=== PATIENT | female | born 1960 | race Caucasian/White ===

== ENCOUNTER 2017-01-13 05:37 | Outpatient (CLI) | payer BC ==
[~2017-01-13] VITALS: Ht 165.1 cm; Wt 63.5 kg
[~2017-01-13 05:37] MED LIST: ATOR20TA66 PO; ESTR1TAB24 PO; MEDR2.5T PO; OXYC-272 PO
--- OUTSIDE RECORDS SUMMARY | 2017-01-13 05:42 | XMS REPORT | Continuity of Care Document ---
Author Author [facility] Organization [facility] Address Unknown Phone Unavailable Care Team Providers Care Industrial Sweeper Cleaner Name Role Phone ARINA VIZCAINO MD PCP Insurance Providers Payer Name Policy Number Subscriber Name Relationship [facility] [id number] Tano Barker Self / Same As Patient Advance Directives Directive Response Recorded Date/Time Advance Directives No 08/22/16 5:08pm Organ Donor Yes 08/22/16 5:08pm Resuscitation Status Full Code 08/22/16 5:08pm Chief Complaint and Reason for Visit Chief Complaint Upper Extremity Reason for Visit [id number] Problems Active Problems Medical Problem Onset Date Status Contusion of hand, left Unknown Acute Medications Current Home Medications Medication Dose Units Route Directions Days/Qty Instructions Start Date Atorvastatin Calcium 20 Mg 30 Mg Oral Daily @1200 TAKE 1 1/2 OF (20MG) TAB 04/18/15 Medroxyprogesterone Acetate 2.5 Mg 2.5 Mg Oral Daily @ 1200 04/18/15 Estradiol 1 Mg 1 Mg Oral Daily @ 1200 04/18/15 Oxycodone Hcl/Acetaminophen 1 Tab 1-2 Tab Oral Every 4HRS 30 04/24/15 Social History Social History Problem Response Recorded Date/Time Alcohol Use Rarely Uses 04/24/2015 11:31am Recreational Drug Use No 04/24/2015 11:31am Recent Foreign Travel No 08/22/2016 5:08pm Recent Infectious Disease Exposure No 08/22/2016 5:08pm Hospitalization with Isolation Denies 08/22/2016 5:08pm Smoking Status Never a Smoker 08/22/2016 5:08pm Recent Hopitalizations No 08/22/2016 5:08pm Hospitalization with Isolation Denies 08/22/2016 5:08pm Query Response Start Date Stop Date Smoking Status Never a Smoker Hospital Discharge Instructions No hospital discharge instructions. Plan of Care Discharge Date 08/22/16 5:55pm Disposition 01 HOME, SELF-CARE Condition at Discharge Stable Instructions/Education Provided Contusion (ED) Prescriptions See Medication Section Referrals ARINA VIZCAINO MD - Primary Care Physician Additional Instructions/Education All discharge instructions reviewed with patient and/or family. Voiced understanding. Per wrap, except when bathing. Ice to left hand 20 min every 2 hours Tylenol 650 mg every 6-8 hours as needed. return to emergency department for symptoms that worsen or change. Functional Status No functional status results. Allergies, Adverse Reactions, Alerts No known allergies. Immunizations Name Given Type DTaP-Tetanus, Dipth, Pertuss P/F (Boostrix) 08/22/16 Administered Vital Signs Acute Vital Signs Vital Response Date/Time Temperature (Fahrenheit) 97.8 degrees F (97.6 - 99.5) 08/22/2016 5:08pm Temperature (Calculated Celsius) 36.37100 degrees C (36.4 - 37.5) 08/22/2016 5:08pm Temperature Source Temporal 08/22/2016 5:08pm Pulse Rate (adult) 0 bpm (60 - 90) 08/22/2016 5:55pm Respiratory Rate 0 bpm (12 - 24) 08/22/2016 5:55pm O2 Sat by Pulse Oximetry 0 % (88 - 100) 08/22/2016 5:55pm Blood Pressure 0/0 mm Hg 08/22/2016 5:55pm Blood Pressure Mean 89 mm Hg 08/22/2016 5:08pm Pain Numeric Pain Scale 6 08/22/2016 5:08pm Height (Feet) 5 feet 08/22/2016 5:08pm Height (Inches) 5 inches 08/22/2016 5:08pm Height (Calculated Centimeters) 165.578366 cm 08/22/2016 5:08pm Weight (Pounds) 140 pounds 08/22/2016 5:08pm Weight (Calculated Kilograms) 63.661947 kilograms 08/22/2016 5:08pm Capillary Refill Capillary Refill Less Than 3 Seconds 08/22/2016 5:08pm Height 5 ft 5 in Weight 140 lb Body Mass Index 23.3 kg/m^2 Results No known relevant diagnostic tests, laboratory data and/or discharge summary. Procedures No known history of procedures. Encounters Encounter Location Arrival/Admit Date Discharge/Depart Date Attending Provider Departed Emergency Room [facility] 08/22/16 5:06pm 08/22 5:55pm ALMAZ JO Recent Diagnosis
== END 2017-01-13 12:23 ==
LOC: PREOP 05:37
PROVIDERS: ATTEND Internal Medicine
DX: Z01.818 Encounter for other preprocedural examination (principal); Z12.11 Encounter for screening for malignant neoplasm of colon

== ENCOUNTER 2017-01-15 07:31 | Day surgery (SDC) | payer BC ==
[~2017-01-15] VITALS: Ht 165.1 cm; Wt 63.5 kg
--- OUTSIDE RECORDS SUMMARY | 2017-01-15 07:33 | XMS REPORT | Continuity of Care Document ---
Author Author [facility] Organization [facility] Address Unknown Phone Unavailable Care Team Providers Care Can Filler Name Role Phone ARINA VIZCAINO MD PCP Insurance Providers Payer Name Policy Number Subscriber Name Relationship [facility] [id number] Tano Barker Self / Same As Patient Advance Directives Directive Response Recorded Date/Time Advance Directives No 01/13/17 12:19pm Organ Donor Yes 01/13/17 12:19pm Resuscitation Status Full Code 01/13/17 12:19pm Problems Active Problems Medical Problem Onset Date [...] 1 Mg Oral Daily @ 1200 04/18/15 Past Home Medications Medication Directions Ordered Status Oxycodone Hcl/Acetaminophen 1 Tab Tablet, 1-2 Tab Oral Every 4HRS 04/24/15 Discontinued Social History Social History Problem Response Recorded Date/Time Alcohol Use Rarely Uses 04/24/2015 11:31am Recreational Drug Use No 04/24/2015 11:31am Recent Foreign Travel No 01/13/2017 12:19pm Recent Infectious Disease Exposure No 01/13/2017 12:19pm Smoking Status Never a Smoker 01/13/2017 12:19pm Recent Hopitalizations No 01/13/2017 12:19pm Query Response Start Date Stop Date Smoking Status Never a Smoker Hospital Discharge Instructions No hospital discharge instructions. Plan of Care Discharge Date 01/13/17 12:23pm Prescriptions See Medication Section Functional Status No functional status results. Allergies, Adverse Reactions, Alerts No known allergies. Immunizations No immunization records. Vital Signs Acute Vital Signs Vital Response Date/Time Height (Feet) 5 feet 01/13/2017 12:17pm Height (Inches) 5.00 inches 01/13/2017 12:17pm Height (Calculated Centimeters) 165.923361 cm 01/13/2017 12:17pm Weight (Pounds) 140 pounds 01/13/2017 12:17pm Weight (Ounces) 0.0 oz 01/13/2017 12:17pm Weight (Calculated Grams) 55710.93 gm 01/13/2017 12:17pm Weight (Calculated Kilograms) 63.520607 kilograms 01/13/2017 12:17pm Calculated BMI 23.3 01/13/2017 12:17pm Results No known relevant diagnostic tests, laboratory data and/or discharge summary. Procedures No known history of procedures. Encounters Encounter Location Arrival/Admit Date Discharge/Depart Date Attending Provider Departed Clinic [facility] 01/13/17 5:37am 01/13/17 12: 23pm DEBBIE BROOKS MD
--- OUTSIDE RECORDS SUMMARY | 2017-01-15 07:34 | XMS REPORT | Continuity of Care Document ---
Author Author [facility] Organization [facility] Address Unknown Phone Unavailable Care Team Providers Care Airport Maintenance Laborer Name Role Phone ARINA VIZCAINO MD PCP Insurance Providers Payer Name Policy Number Subscriber Name Relationship [facility] [id number] Tano Barker Self / Same As Patient [...] 5.00 inches 01/13/2017 12:17pm Height (Calculated Centimeters) 165.902436 cm 01/13/2017 12:17pm Weight (Pounds) 140 pounds 01/13/2017 12:17pm Weight (Ounces) 0.0 oz 01/13/2017 12:17pm Weight (Calculated Grams) 40428.93 gm 01/13/2017 12:17pm Weight (Calculated Kilograms) 63.213889 kilograms 01/13/2017 12:17pm Calculated BMI 23.3 01/13/2017 12:17pm Results No known relevant diagnostic tests, laboratory data and/or discharge summary. Procedures No known history of procedures. Encounters Encounter Location Arrival/Admit Date Discharge/Depart Date Attending Provider Departed Clinic [facility] 01/13/17 5:37am 01/13/17 12: 23pm DEBBIE BROOKS MD
--- NOTE | 2017-01-15 07:42 | Pre-Op Note & Conscious Sedat ---
Pre-Operative Progress Note H&P Reviewed The H&P was reviewed, patient examined and no changes noted. Date H&P Reviewed: Jan 15, 2017 Time H&P Reviewed: 07:42 Conscious Sedation Pre-Proced ASA Class: 2 Airway Mallampati Classification: ([place] appropriate class) I. II. III, IV Lungs Heart ASA score ASA 1: a normal healthy patient ASA 2: a patient with a mild systemic disease (mid diabetes, controlled hypertension, obesity ASA 3: a patient with a severe systemic disease that limits activity (angina , COPD, prior Myocardial infarction) ASA 4: a patient with an incapacitating disease that is a constant threat to life (CHF, renal failure) ASA 5: a moribund patient not expected to survive 24 hrs. (ruptured aneurysm) ASA 6: a declared brain patient whose organs are being harvested. For emergent operations, add the letter E after the classification Grade 3 Sedation Plan: Analgesia, Amnesia, Plan communicated to team members, Discussed options with patient/fam, Discussed risks with patient/fam Note The patient is an appropriate candidate to undergo the planned procedure, sedation, and anesthesia. The patient immediately re-assessed prior to indication. DEBBIE BROOKS MD Jan 15, 2017 07:42
--- NOTE | 2017-01-15 07:44 | HISTORY AND PHYSICAL ---
DICTATING PHYSICIAN: Dr. Cardenas DATE OF ADMISSION: 01/15/2017 REFERRING PHYSICIAN: Dr. Salter. INDICATION FOR THE PROCEDURE: Screening colonoscopy Mrs. Barker is a 56-year-old white female referred for her first screening colonoscopy. She is not aware of any family history for colon cancer. She denies any recent bowel habit changes and was not aware of any bright red blood per rectum or melena. She reports that her weight has been stable. PAST SURGICAL HISTORY: 1. Significant for hysteroscopy with uterine ablation for dysfunctional uterine bleeding; this was done per Dr. Salter in 2014. 2. She has had no subsequent problems. 3. She has had nephrolithiasis requiring stone basketing x2 thirty years ago with no subsequent problems. 4. She reports no abdominal surgery. PAST MEDICAL HISTORY: 1. Significant for hyperlipidemia. 2. No known history of coronary artery disease. MEDICATIONS ON ADMISSION: 1. Medroxyprogesterone 2.5 mg daily. 2. Estradiol 1 mg daily. 3. Atorvastatin 30 mg daily. SOCIAL HISTORY: She reports no smoking history with rare alcohol intake. She works for the [employer]. FAMILY HISTORY: Mother and father are both living at 76 and 75 years of age respectively with no reported health problems. PHYSICAL EXAMINATION: Reveals a white female, appears to be in no acute distress. Blood pressure of 128/82. HEENT: She is a Mallampati class II oropharyngeal configuration. Pharynx reveals no evidence for erythema or exudates. NECK: Reveals no JVD, adenopathy or bruits. CHEST: Clear. CV: Reveals regular rate and rhythm without murmur, S3 or S4. ABDOMEN: Soft, supple without mass, organomegaly or tenderness. Bowel sounds are positive in all 4 quadrants. EXTREMITIES: Reveal no cyanosis, clubbing, or edema. ASSESSMENT: The patient was set-up for screening colonoscopy on the . Prep instructions were given and questions were answered. Her electronic medical record was reviewed as well. I thank you for the referral of this pleasant lady. Sincerely, Meng Cardenas Job ID: [id number] Dictated Date: 01/05/2017 20:32:00 Dental Therapist Date: 01/06/2017 10:12:11/more
[2017-01-15 07:45] VITALS: BP 122/84
[2017-01-15] MEDS ORDERED: NALOXONE 0.4 MG/ML 1 ML (NARCAN) VIAL IVP PRN (08:15)
[2017-01-15] MEDS ORDERED: FLUMAZENIL (ROMAZICON) 0.1 MG/ML 5 ML VIAL INJ PRN (08:15)
[2017-01-15] MEDS ORDERED: 1/2 NS IV SOLUTION 1,000 ML IV PRN (08:15)
[2017-01-15] MEDS ORDERED: 1/2 NS IV SOLUTION 1,000 ML IV ONE (08:33)
[2017-01-15] MEDS ORDERED: MIDAZOLAM 2 MG/2 ML (VERSED) VIAL ONE ×3 (08:37→09:07)
[2017-01-15] MEDS ORDERED: fentaNYL INJECTION 100 MCG/2 ML AMP ONE ×2 (08:37→08:48)
[2017-01-15] MEDS ORDERED: LIDOCAINE JELLY 2% (XYLOCAINE) 5 ML TUBE ONE (08:38)
[2017-01-15] MEDS: fentaNYL INJECTION 100 MCG/2 ML AMP IVP PRN ×3 (08:46→08:58)
[2017-01-15] MEDS: MIDAZOLAM 2 MG/2 ML (VERSED) VIAL IVP PRN ×3 (08:48→09:10)
[2017-01-15 10:00] VITALS: BP 109/72
[2017-01-15 10:25] VITALS: BP 116/73
--- NOTE | 2017-01-15 16:29 | PROCEDURE REPORT ---
PROCEDURE PHYSICIAN: DEBBIE BROOKS DATE OF PROCEDURE: 01/15/2017 COLONOSCOPY SUMMARY: INDICATION FOR THE PROCEDURE: Screening colonoscopy. REFERRING PHYSICIAN: Dr. Salter. PROCEDURE: The patient was placed in the left lateral decubitus position. Prior to going colonoscopy, digital rectal evaluation was performed. The patient did have some redundant perianal skin folds, but no evidence for internal or external hemorrhoids was noted. Digital rectal evaluation revealed no abnormalities to digital inspection. Anal sphincter tone was normal and the perianal reflex was intact. The colonoscope was then inserted into the rectum and under visualization, advanced to the cecum. The cecum was identified by identification of the ileocecal valve and cecal strap. Photographic documentation was obtained. Careful inspection was made as the colonoscope was withdrawn. FINDINGS: There were no evidence for internal or external hemorrhoids and the rectum was unremarkable. A moderate number of small to medium size sigmoid diverticulum were present with haustral hypertrophy. No evidence for diverticulitis was present. No evidence for neoplasia was noted in the sigmoid colon. The descending colon was unremarkable. Present in the proximal transverse colon was a slightly inflamed 5 mm sessile adenomatous appearing polyp. It was photographed, biopsied and ablated. No subsequent blood loss was noted. The remainder of the transverse colon, hepatic flexure, ascending colon and cecum were unremarkable. ASSESSMENT: 1. Moderate diverticular disease confined to the sigmoid colon was present, without evidence for diverticulitis. 2. 5 mm sessile inflamed adenomatous appearing polyp was removed from the proximal transverse colon without subsequent blood loss via hot forceps. We will await histopathology report before making recommendations for future surveillance colonoscopy. Job ID: [id number] Dictated Date: 01/15/2017 10:31:10 Steel Fabricating Supervisor Date: 01/15/2017 16:21:32 / carolina VEGA
== END 2017-01-15 10:28 | disposition home or self-care (01) ==
LOC: ENDO 07:31
PROVIDERS: ATTEND Internal Medicine
DX: Z12.11 Encounter for screening for malignant neoplasm of colon (principal); K63.5 Polyp of colon; K57.30 Diverticulosis of large intestine without perforation or abscess without bleeding
CPT/HCPCS: 88305

== ENCOUNTER → 2017-01-21 | Outpatient (CLI) | payer BC ==
--- NOTE | 2017-01-21 17:42 | Diagnostic Imaging Report ---
Bilateral screening mammogram. The current study was also evaluated with a Computer Aided Detection (CAD) system. INDICATION: Screening. No current complaints stated on the questionnaire. COMPARISON: 01/15/16. FINDINGS: The breasts are composed of scattered fibroglandular densities which may decrease mammographic sensitivity. There is no mass, architectural distortion or suspicious cluster of calcification. Allowing for technique and positional differences, no suspicious change is seen. IMPRESSION: No significant change. ACR BI-RADS Category 2: Benign findings. Result letter will be mailed to the patient. Note: At least 10% of breast cancer is not imaged by mammography. Dictated by: Dictated on workstation # [id number]
== END ==
LOC: RAD 12:44
PROVIDERS: ATTEND Obstetrics & Gynecology
DX: Z12.31 Encounter for screening mammogram for malignant neoplasm of breast (principal)
CPT/HCPCS: 77067

== ENCOUNTER → 2018-01-24 | Outpatient (CLI) | payer BC ==
--- NOTE | 2018-01-24 12:38 | Diagnostic Imaging Report ---
INDICATION: Routine screening. Comparison is made with prior study from 01/21/2017 and 01/15/2016. The current study was also evaluated with a Computer Aided Detection (CAD) system. Scattered fibronodular densities are identified bilaterally. No mass or malignant appearing microcalcifications are seen. The axillae are unremarkable. IMPRESSION: BI-RADS category one No mammographic features suspicious for malignancy are identified. ACR BI-RADS Category 1: Negative. Result letter will be mailed to the patient. Note: At least 10% of breast cancer is not imaged by mammography. Dictated by: Dictated on workstation # [id number]
== END ==
LOC: RAD 10:10
PROVIDERS: ATTEND Obstetrics & Gynecology
DX: Z12.31 Encounter for screening mammogram for malignant neoplasm of breast (principal)
CPT/HCPCS: 77067

== ENCOUNTER → 2019-01-26 | Outpatient (CLI) | payer BC ==
--- NOTE | 2019-01-26 18:55 | Diagnostic Imaging Report ---
INDICATION: Routine screening. COMPARISON: Comparison is made with prior mammograms from 01/24/2018 and 01/21/2017. TECHNIQUE: 2D and 3D bilateral screening mammography was performed with computer-aided detection (CAD) system. FINDINGS: Both breasts are heterogeneously dense, limiting the sensitivity of mammography. The parenchymal pattern is stable. No mass or malignant-appearing microcalcifications are seen. The axillae are unremarkable. IMPRESSION: No mammographic features suspicious for malignancy are identified. ACR BI-RADS Category 1: Negative. Result letter will be mailed to the patient. Note: At least 10% of breast cancer is not imaged by mammography. Dictated by: Dictated on workstation # [id number]
== END ==
LOC: RAD 11:23
PROVIDERS: ATTEND Obstetrics & Gynecology
DX: Z12.31 Encounter for screening mammogram for malignant neoplasm of breast (principal)
CPT/HCPCS: 77067

== ENCOUNTER → 2020-03-22 | Outpatient (CLI) | payer BC ==
--- NOTE | 2020-03-22 18:46 | Diagnostic Imaging Report ---
INDICATION: Routine screening. Comparison is made with prior mammograms from 01/26/2019 and 01/24/2018. 2-D and 3-D bilateral screening mammography was performed. Current study was also evaluated with a Computer Aided Detection (CAD) system. FINDINGS: Both breasts are heterogeneously dense, limiting the sensitivity of mammography. The parenchymal pattern is stable. No mass or malignant-appearing microcalcifications are seen. Axillae are unremarkable. IMPRESSION: No mammographic features suspicious for malignancy are identified. ACR BI-RADS Category 1: Negative. Result letter will be mailed to the patient. Note: At least 10% of breast cancer is not imaged by mammography. Dictated by: Dictated on workstation # [id number]
== END ==
LOC: RAD 10:19
PROVIDERS: ATTEND Obstetrics & Gynecology
DX: Z12.31 Encounter for screening mammogram for malignant neoplasm of breast (principal)
CPT/HCPCS: 77063; 77067

== ENCOUNTER → 2021-03-24 | Outpatient (CLI) | payer BC ==
--- NOTE | 2021-03-24 15:33 | Diagnostic Imaging Report ---
INDICATION: Routine screening. COMPARISON: 03/22/2020 and 01/26/2019. TECHNIQUE: 2D and 3D bilateral screening mammography was performed with CAD. FINDINGS: Both breasts are heterogeneously dense, limiting the sensitivity of mammography. The parenchymal pattern is stable. No mass or malignant appearing microcalcifications are seen. The axillae are unremarkable. IMPRESSION: No mammographic features suspicious for malignancy are identified. ACR BI-RADS Category 1: Negative. Result letter will be mailed to the patient. Note: At least 10% of breast cancer is not imaged by mammography. Dictated by: Dictated on workstation # [id number]
== END ==
LOC: RAD 10:57
PROVIDERS: ATTEND Obstetrics & Gynecology
DX: Z12.31 Encounter for screening mammogram for malignant neoplasm of breast (principal)
CPT/HCPCS: 77063; 77067

== ENCOUNTER → 2022-03-05 | Outpatient (CLI) | payer BC | LOC: LABNPT 11:57 | PROVIDERS: ATTEND Obstetrics & Gynecology | DX: Z00.00 Encounter for general adult medical examination without abnormal findings (principal); Z12.31 Encounter for screening mammogram for malignant neoplasm of breast | CPT/HCPCS: 80061; 84443 ==

== ENCOUNTER → 2022-03-25 | Outpatient (CLI) | payer BC ==
--- NOTE | 2022-03-25 14:07 | Diagnostic Imaging Report ---
Indication: Routine screening. Comparison is made with prior mammogram 03/24/2021 and 03/22/2020. 2-D and 3-D bilateral screening mammography was performed with CAD. CAD is utilized. The current study was also evaluated with a Computer Aided Detection (CAD) system. Both breasts are heterogeneously dense, limiting the sensitivity of mammography. The parenchymal pattern is stable. No mass or malignant-appearing microcalcifications are seen. Axillae are unremarkable. IMPRESSION: BI-RADS Category 1 No mammographic features suspicious for malignancy are identified. ACR BI-RADS Category 1: Negative. Result letter will be mailed to the patient. Note: At least 10% of breast cancer is not imaged by mammography. Dictated by: Dictated on workstation # [id number]
== END ==
LOC: RAD 11:15
PROVIDERS: ATTEND Obstetrics & Gynecology
DX: Z12.31 Encounter for screening mammogram for malignant neoplasm of breast (principal)
CPT/HCPCS: 77063; 77067

== ENCOUNTER 2022-05-29 09:17 | Emergency (ER) | payer BC ==
[~2022-05-29] VITALS: Ht 170 cm; Wt 61.0 kg
[2022-05-29] VITALS (10 sets, daily range): BP systolic 109–135; BP diastolic 65–108
[2022-05-29] MEDS ORDERED: MIDAZOLAM 5 MG/5 ML (VERSED) VIAL INJ ONE (09:19)
[2022-05-29] MEDS ORDERED: ROCURONIUM 50 MG/5 ML (ZEMURON) VIAL IV ONE (09:19)
[2022-05-29] MEDS ORDERED: ETOMIDATE IV SOLN 20 MG/10 ML VIAL IV ONE (09:19)
[2022-05-29] MEDS ORDERED: LIDOCAINE UROJET 2% GEL 10 ML PKG TOP ONE (09:30)
--- NOTE | 2022-05-29 09:45 | ED Neurological Problem ---
General Stated Complaint: STROKE Source: patient, family, EMS Exam Limitations: no limitations History of Present Illness Date Seen by Provider: May 29, 2022 Time Seen by Provider: 09:30 Initial Comments Patient is a 62-year-old female who presents to the emergency room by ambulance today with a chief complaint of syncopal episode at home. Patient has a history of hypercholesterolemia that is her only medical problem. She got up at about 730 this morning states she felt a little dizzy. Her came in from the garage at approximately 8:30 AM and she was sitting in the chair and she stated to him "I think I am having a stroke". He states he looked at her pupils and they looked unequal. She promptly had a syncopal event. He states she was out for about "25 minutes". By the time she got to the hospital she was still unresponsive. Immediately after the CT she started waking up. Nursing reports that she was "posturing" prior to CT. Nursing reports that right pupil was 2 mm left pupil was 4 mm. 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 She states "my vision is blurry". She does state that she thought her vision was "double" prior to her syncopal event. She denies chest pain, shortness of breath, nausea or vomiting. She denies headache. She has never had symptoms like this before. She denies numbness weakness or tingling of any of her extremities. No incontinence. No recent illnesses such as fevers, chills, cough or congestion. No urinary or GI complaints. She is not on daily aspirin. Family history of stroke per . No recent traumas. Time of onset of the syncope and abnormal pupils was approximately 8 30-8 45 per . All other review of systems reviewed and negative except as stated. Timing/Duration: 1 hour Associated Symptoms: vision changes Allergies and Home Medications Allergies Coded Allergies: No Known Drug Allergies (Verified , 01/15/17) Patient Home Medication List Home Medication List Reviewed: Yes Atorvastatin Calcium (Atorvastatin Calcium) 20 Mg Tablet, 30 MG PO DAILY @1200, (Reported) Entered as Reported by: WILL TAYLOR on 04/18/15 1334 Estradiol (Estradiol) 1 Mg Tablet, 1 MG PO DAILY @ 1200, (Reported) Entered as Reported by: WILL TAYLOR on 04/18/15 1334 Medroxyprogesterone Acetate (Provera) 2.5 Mg Tablet, 2.5 MG PO DAILY @ 1200, (Reported) Entered as Reported by: WILL TAYLOR on 04/18/151333 Review of Systems Review of Systems Constitutional: see HPI Eyes: Decreased Acuity Ears, Nose, Mouth, Throat: no symptoms reported Respiratory: no symptoms reported Cardiovascular: no symptoms reported Gastrointestinal: no symptoms reported : No Musculoskeletal: no symptoms reported Skin: no symptoms reported Psychiatric/Neurological: Other (dizziness; slurred speech) All Other Systems Reviewed Negative Unless Noted: Yes Past Wkegqfj-Wzzkoq-Cmglsn Hx Seasonal Allergies Seasonal Allergies: No Past Medical History High Cholesterol Reproductive Disorders: No Physical Exam Vital Signs Vital Signs - First Documented 05/29/22 05/29/22 05/29/22 09:17 09:25 10:51 Temp 36.7 Pulse 75 Resp 16 B/P (MAP) 110/79 (89) Pulse Ox 100 O2 Delivery Non Rebreather O2 Flow Rate 2.00 FiO2 40 Capillary Refill : Height, Weight, BMI Height: 5'5.00" Weight: 140lbs. 0.0oz. [id number]; 23.3 BMI Method:Stated General Appearance: WD/WN, no apparent distress HEENT: PERRL/EOMI, normal ENT inspection, pharynx normal Neck: non-tender, full range of motion, supple, normal inspection Respiratory: lungs clear, normal breath sounds, no respiratory distress, no accessory muscle use Cardiovascular: regular rate, rhythm Gastrointestinal: normal bowel sounds, non tender, soft Extremities: normal range of motion, non-tender, normal inspection, no pedal edema, normal capillary refill Neurologic/Psychiatric: alert, normal mood/affect, oriented x 3; No abnormal cerebellar tests; other (slightly slurred speech) Crainal Nerves: normal hearing, PERRL; No abnormal eye position; abnormal speech; No facial paresthesias, No tongue deviation to R, No tongue deviation to L Coordination/Gait: normal finger to nose, normal gait (not tested), negative Romberg's sign Motor/Sensory: no sensory deficit, weak motor strength RUE (very slight weakness) Skin: normal color, warm/dry Stroke Onset of Symptoms Date of Onset of Symptoms: May 29, 2022 Time of Symptom Onset: 08:45 Onset of Symptoms: Yes Symptoms onset unknown: No NIH Stroke Scale Assessment Select: Post CT Level of Consciousness: 0=Alert (0), Level of Consciousness- Questions: 0=Answers both month/age (0), LOC Commands: 0=Performs both tasks (0), Gaze: Partial Gaze Palsy (1), Visual Jett: 0=No visual loss (0), Facial Movement (Facial Paresis): 0=Normal symmetrical mnt (0), Motor Function-Arms Right: 0=No drift (0), Motor Function-Arms Left: 0=No drift (0), Motor Function-Legs Right: 0=No drift (0), Motor Function-Legs Left: 0=No drift (0), Limb Ataxia: 0=Absent (0), Sensory: 0=Normal:no loss (0), Best Language: 0=No aphasia (0), Dysarthria: 1=Mild to moderate loss (1), Extinction & Inattention: 0=No abnormality (0), Total: 2 Stroke Thrombolytic Exclusion Age 18 or Over: Yes Acute intenal hemorrhage: No History of CVA: No Uncontrolled Coagulation Defec: No Intracranial Hemorrhage: No Severe Hypertension: No GI or Bleed: No Subarachnoid Hemorrhage: No Intracranial Neoplasm/Aneurysm: No Oral Anticoagulants: No Surgery or Trauma: No Puncture of Non-Compressible V: No Recent CPR: No Diabetic Hemorrhagic Retinopat: No Organ Biopsy: No Recent Obstetric Delivery: No Glucose: No Significant Hepatic Dysfunctio: No NIH Stoke Scale >22: No Bacterial Endocarditis: No Pericarditis: No Improving Symptoms: No Platelets: No TPA Contraindication: No Procedures/Interventions Reason for Intubation: acute stroke Date of ETT Placement: May 29, 2022 Time of ETT Placement: 10:50 Intubation Method: orotracheal Tube Size: 7.0 Medications: Etomidate, Rocuronium Positive End Tide CO2: Yes Breath Sounds after Intubation: bilateral-equal Intubation Complications: no complications Post Intubation Xray: Yes secured at 21 at the teeth Progress/Results/Core Measures Results/Orders Lab Results Laboratory Tests Test 05/29/22 09:40 05/29/22 09:50 05/29/22 11:00 Range/Units White Blood Count 4.7 4.3-11.0 10^3/uL Red Blood Count 3.68 L 3.80-5.11 10^6/uL Hemoglobin 11.5 11.5-16.0 g/dL Hematocrit 33 L 35-52 % Mean Corpuscular Volume 91 80-99 fL Mean Corpuscular Hemoglobin 31 25-34 pg Mean Corpuscular Hemoglobin Concent 35 32-36 g/dL Red Cell Distribution Width 14.3 10.0-14.5 % Platelet Count 237 130-400 10^3/uL Mean Platelet Volume 10.1 9.0-12.2 fL Immature Granulocyte % (Auto) 1 % Neutrophils (%) (Auto) 56 42-75 % Lymphocytes (%) (Auto) 26 12-44 % Monocytes (%) (Auto) 12 0-12 % Eosinophils (%) (Auto) 4 0-10 % Basophils (%) (Auto) 1 0-10 % Neutrophils # (Auto) 2.6 1.8-7.8 10^3/uL Lymphocytes # (Auto) 1.3 1.0-4.0 10^3/uL Monocytes # (Auto) 0.6 0.0-1.0 10^3/uL Eosinophils # (Auto) 0.2 0.0-0.3 10^3/uL Basophils # (Auto) 0.1 0.0-0.1 10^3/uL Immature Granulocyte # (Auto) 0.0 0.0-0.1 10^3/uL Sodium Level 142 135-145 MMOL/L Potassium Level 3.9 3.6-5.0 MMOL/L Chloride Level 109 H 98-107 MMOL/L Carbon Dioxide Level 24 21-32 MMOL/L Anion Gap 9 5-14 MMOL/L Blood Urea Nitrogen 16 7-18 MG/DL Creatinine 0.71 0.60-1.30 MG/DL Estimat Glomerular Filtration Rate 97 BUN/Creatinine Ratio 23 Glucose Level 100 70-105 MG/DL Calcium Level 9.6 8.5-10.1 MG/DL Corrected Calcium 9.5 8.5-10.1 MG/DL Total Bilirubin 1.7 H 0.1-1.0 MG/DL Aspartate Amino Transf (AST/SGOT) 25 5-34 U/L Alanine Aminotransferase (ALT/SGPT) 24 0-55 U/L Alkaline Phosphatase 51 40-136 U/L Troponin I < 0.028 <0.028 NG/ML Total Protein 6.4 6.4-8.2 GM/DL Albumin 4.1 3.2-4.5 GM/DL Prothrombin Time 12.9 12.2-14.7 SEC INR Comment 0.9 0.8-1.4 Activated Partial Thromboplast Time 24 24-35 SEC D-Dimer 1.87 H 0.00-0.49 UG/ML Urine Color YELLOW Urine Clarity CLEAR Urine pH 6.5 5-9 Urine Specific [place] 1.010 L 1.016-1.022 Urine Protein NEGATIVE NEGATIVE Urine Glucose (UA) NEGATIVE NEGATIVE Urine Ketones 1+ H NEGATIVE Urine Nitrite NEGATIVE NEGATIVE Urine Bilirubin NEGATIVE NEGATIVE Urine Urobilinogen 1.0 < = 1.0 MG/DL Urine Leukocyte Esterase NEGATIVE NEGATIVE Urine RBC (Auto) 1+ H NEGATIVE Urine RBC RARE /HPF Urine WBC NONE /HPF Urine Squamous Epithelial Cells RARE /HPF Urine Crystals NONE /LPF Urine Bacteria NEGATIVE /HPF Urine Casts NONE /LPF Urine Mucus NEGATIVE /LPF Urine Culture Indicated NO My Orders Orders - WALDEMAR MEDINA MD Ct Head Wo-R/O Stroke (05/29/22 09:20) Cbc With Automated Diff (05/29/22 09:20) Protime With Inr (05/29/22 09:20) Partial Thromboplastin Time (05/29/22 09:20) Comprehensive Metabolic Panel (05/29/22 09:20) Fibrin Degradation Products (05/29/22 09:20) Troponin I Rosie (05/29/22 09:20) Ua Culture If Indicated (05/29/22 09:20) Chest 1 View, Ap/Pa Only (05/29/22 09:20) Catheter(Urinary) Insert & Ass 03,15 (05/29/22 09:20) Ekg Tracing (05/29/22 09:20) Accucheck Stat ONCE (05/29/22 09:20) Ed Iv/Invasive Line Start (05/29/22 09:20) Ed Iv/Invasive Line Start (05/29/22 09:20) Vital Signs Stroke Patient Q15M (05/29/22 09:20) O2 (05/29/22 09:20) Intake & Output 06,14,22 (05/29/22 09:20) Monitor-Rhythm Ecg Trace Only (05/29/22 09:20) Dysphagia Screening Tool Q10MX1 (05/29/22 09:20) Post Thrombolytic Adminstratio (05/29/22 09:20) Lidocaine 2% (Urojet) (Xylocaine Urojet) (05/29/22 09:30) Ct Angio Head/Neck (05/29/22 09:38) Accucheck Stat ONCE (05/29/22 09:47) Ed Iv/Invasive Line Start (05/29/22 09:47) Ed Iv/Invasive Line Start (05/29/22 09:47) Vital Signs Stroke Patient Q15M (05/29/22 09:47) O2 (05/29/22 09:47) Intake & Output 06,14,22 (05/29/22 09:47) Dysphagia Screening Tool Q10MX1 (05/29/22 09:47) Post Thrombolytic Adminstratio (05/29/22 09:47) Iohexol Injection (Omnipaque 350 Mg/Ml 1 (05/29/22 10:00) Received Contrast (Hold Metformin- Contr (05/29/22 10:00) Sodium Chloride Flush (Catheter Flush Sy (05/29/22 10:00) Ns (Ivpb) (Sodium Chloride 0.9% Ivpb Bag (05/29/22 10:00) Tenecteplase (Tnkase) (05/29/22 10:28) Catheter(Urinary) Insert & Ass 03,15 (05/29/22 10:55) Ng Tube Insert & Assessment (05/29/22 10:55) Chest 1 View, Ap/Pa Only (05/29/22 10:55) Midazolam Injection (Versed Injection) (05/29/22 11:00) Etomidate Injection (Amidate Injection) (05/29/22 09:19) Midazolam Injection (Versed Injection) (05/29/22 09:19) Rocuronium Injection (Zemuron Injection) (05/29/22 09:19) Medications Given in ED Vital Signs/I&O 05/29/22 05/29/22 05/29/22 05/29/22 09:17 09:25 09:30 09:45 Temp 36.7 Pulse 75 75 52 Resp 16 14 14 B/P (MAP) 110/79 (89) 115/75 112/73 Pulse Ox 100 95 96 96 O2 Delivery Non Rebreather Nasal Cannula O2 Flow Rate 2.00 05/29/22 05/29/22 05/29/22 05/29/22 10:00 10:15 10:30 10:45 Pulse 54 59 99 70 Resp 10 12 14 18 B/P (MAP) 112/73 113/65 112/78 110/77 Pulse Ox 96 99 99 96 05/29/22 05/29/22 05/29/22 05/29/22 10:51 11:00 11:15 11:35 Temp 37.0 Pulse 67 71 70 70 Resp 16 16 16 16 B/P (MAP) 109/76 135/92 135/92 Pulse Ox 100 99 100 100 O2 Delivery Mechanical Ventilator FiO2 40 Progress Progress Note #1: Time: 09:44 Progress Note Hyperdense sign in the basilar artery on CT per Radiologist, concerning for clot - CT angio ordered Progress Note #2: Time: 10:00 Progress Note 10 AM notified as the patient is being wheeled back to CAT scan for angio that she became unresponsive within the last 60 seconds. Brief exam shows the patient to be unresponsive and her right pupil is indeed about 2 mm with the left pupil 4-5. She is making good respiratory effort. Vital signs are stable. But she is absolutely unresponsive. We went ahead and sent her for the angio. I will contact . Progress Note #3: Time: 10:14 Progress Note Consult made to stroke neurology at this time; discussed with Dr. Newell stroke neurologist. She recommends NO tPA at this time secondary to waking up with symptoms at 730. She is agreeable with intubation prior to transport. She will be accepted directly to interventional radiology and then ICU. [facility] requested a phone call when the helicopter arrives and they can give an ETA. Both the patient and family updated. Nenita is now awake, her pupils are back to normal. Her vital signs are still stable. She is comfortable with the plan of care as is her . All questions are sought and answered. Progress Note #4: Time: 10:58 Progress Note Just prior to intubation at 1045 the patient again became quite somnolent, garbled speech and her pupils unequal again. Preparation for intubation had begun. Her vital signs remained stable. She was sedated with 20 mg of etomidate paralyzed with 50 mg of rocuronium. Preoxygenated, 7.0 ET tube was used with a glide scope, placed successfully with positive visualization of the cords, positive end-tidal CO2 positive equal breath sounds. Chest x-ray is pending at this time. ETA on helicopter is approximately 30 minutes. There were no changes in vital signs, she did not get bradycardic or tachycardic. Her blood pressure stayed the same at about 112 systolic. Oxygen saturations never dropped below 100%. Initial ECG Impression Date: May 29, 2022 Initial ECG Impression Time: 09:36 Initial ECG Rate: 87 Initial ECG Rhythm: Normal Sinus Initial ECG Intervals: Normal Initial ECG Impression: Normal Initial ECG Comparisson: No Previous ECG Available Diagnostic Imaging Diagonstic Imaging: CT Comments [facility], [place] NAME: TANO ARAMBULA [facility] REC#: [id number] PT STATUS: REG ER : 1960 PHYSICIAN: WALDEMAR MEDINA MD ADMIT DATE: 05/29/22/ER Draft Date of Exam:05/29/22 CT HEAD WO-R/O STROKE CLINICAL INDICATION: Patient unresponsive. EXAM: Axial CT scan of the brain performed without IV contrast with sagittal and coronal reformatted images. Auto Exposure Controls were utilized during the CT exam to meet ALARA standards for radiation dose reduction. COMPARISON: None. FINDINGS: There is high density within the vwk-qd-hnrgct basilar artery extending to the basilar summit region concerning for intravascular thrombus. There is normal weber-white matter distinction. There is no intracranial hemorrhage, brain herniation, or midline shift. There is no acute cerebral infarct seen. There is no hydrocephalus. Basal cisterns are unremarkable. The extracranial soft tissue, skull, and orbits are unremarkable. Paranasal sinuses and mastoid air cells are clear. IMPRESSION: 1: There is hyperdense artery sign involving the mid to distal basilar artery extending to the basilar summit region concerning for intravascular clot. CT angiogram of the head and neck is recommended for further evaluation. 2: There is no evidence of acute cerebral infarct, intracranial hemorrhage, brain herniation, or midline shift. CRITICAL FINDINGS Results of this report discussed with Dr. Waldemar Medina via the telephone on 05/29/2022 at 0943 hours. Dictated on workstation # [id number] Dict: 05/29/2233 Trans: 05/29/22 0954 TROY [id number] Interpreted by: TED ARRIAGA MD Electronically signed by: Everardo Imaging: Xray Plain Films/CT/US/NM/MRI: chest Comments [facility] [place] NAME: TANO ARAMBULA [facility] REC#: [id number] PT STATUS: REG ER : 1960 PHYSICIAN: WALDEMAR MEDINA MD ADMIT DATE: 05/29/22/ER Draft Date of Exam:05/29/22 CHEST 1 VIEW, AP/PA ONLY INDICATION: Stroke. Frontal chest obtained at 09:41 a.m. FINDINGS: Heart and mediastinal silhouette are normal in appearance. The lungs are clear. There is no pneumothorax or pleural fluid. IMPRESSION: Negative chest. Dictated on workstation # [id number] Dict: 05/29/2256 Trans: 05/29/22 0958 SA [id number] Interpreted by: MARIA ELENA LEBLANC MD Electronically signed by: Everardo Imaging: CT Comments Angio head and neck: Notified by radiologist of thrombus identified in the mid/distal or basilar artery on CT angiography. Films have been clouded to Critical Care Note Critical Care Start Time: 09:30 Stop Time: 10:38 Total Time (minutes) 35 minutes critical care time in the evaluation and management of this patient with acute ischemic stroke. Time includes initial evaluation, NIH evaluation, review and interpretation of labs, EKG, imaging. Discussion with radiology. Discussion with stroke neurologist. Discussion with family Departure Impression Primary Impression: Acute ischemic stroke Disposition: XF SHT-TRM HOSP Condition: Critical Transfer Transfer Reason: Exceeds level of care Time Spoke to Accepting Phy: 10:[address] Newell Transfer Time: 11:00 Transfer Facility: Method of Transfer: Air Departure-Patient Inst. Referrals: ARINA VIZCAINO MD (PCP/Family) Primary Care Physician WALDEMAR MEDINA MD May 29, 2022 09:45
[2022-05-29 09:50] LABS: BASOPHILS # (AUTO) 0.1 10^3/uL (0.0-0.1); BASOPHILS % (AUTO) 1 % (0-10); EOSINOPHILS # (AUTO) 0.2 10^3/uL (0.0-0.3); EOSINOPHILS % (AUTO) 4 % (0-10); HEMATOCRIT 33 % (35-52); HEMOGLOBIN 11.5 g/dL (11.5-16.0); LYMPHOCYTES # (AUTO) 1.3 10^3/uL (1.0-4.0); LYMPHOCYTES % (AUTO) 26 % (12-44); MEAN CORPUSCULAR HEMOGLOBIN 31 pg (25-34); MEAN CORPUSCULAR HGB CONC 35 g/dL (32-36); MEAN CORPUSCULAR VOLUME 91 fL (80-99); MEAN PLATELET VOLUME 10.1 fL (9.0-12.2); MONOCYTES # (AUTO) 0.6 10^3/uL (0.0-1.0); MONOCYTES % (AUTO) 12 % (0-12); NEUTROPHILS # (AUTO) 2.6 10^3/uL (1.8-7.8); NEUTROPHILS % (AUTO) 56 % (42-75); PLATELET COUNT 237 10^3/uL (130-400); WHITE BLOOD COUNT 4.7 10^3/uL (4.3-11.0)
--- NOTE | 2022-05-29 09:55 | Diagnostic Imaging Report ---
CLINICAL INDICATION: Patient unresponsive. EXAM: Axial CT scan of the brain performed without IV contrast with sagittal and coronal reformatted images. Auto Exposure Controls were utilized during the CT exam to meet ALARA standards for radiation dose reduction. COMPARISON: None. FINDINGS: There is high density within the aar-hk-dpafnb basilar artery extending to the basilar summit region concerning for intravascular thrombus. There is normal weber-white matter distinction. There is no intracranial hemorrhage, brain herniation, or midline shift. There is no acute cerebral infarct seen. There is no hydrocephalus. Basal cisterns are unremarkable. The extracranial soft tissue, skull, and orbits are unremarkable. Paranasal sinuses and mastoid air cells are clear. IMPRESSION: 1: There is hyperdense artery sign involving the mid to distal basilar artery extending to the basilar summit region concerning for intravascular clot. CT angiogram of the head and neck is recommended for further evaluation. 2: There is no evidence of acute cerebral infarct, intracranial hemorrhage, brain herniation, or midline shift. CRITICAL FINDINGS Results of this report discussed with Dr. Sarah Kenny via the telephone on 05/29/2022 at 0943 hours. Dictated by: Dictated on workstation # [id number]
--- NOTE | 2022-05-29 09:58 | Diagnostic Imaging Report ---
INDICATION: Stroke. Frontal chest obtained at 09:41 a.m. FINDINGS: Heart and mediastinal silhouette are normal in appearance. The lungs are clear. There is no pneumothorax or pleural fluid. IMPRESSION: Negative chest. Dictated by: Dictated on workstation # [id number]
[2022-05-29] MEDS ORDERED: IOHEXOL 350 MG/ML 100 ML (OMNIPAQUE 350) VIAL IV ONE (10:00)
[2022-05-29] MEDS ORDERED: NS 100 ML (IVPB) BAG IV ONE (10:00)
[2022-05-29] MEDS ORDERED: CATHETER FLUSH 10 ML SYR IV PRN (10:00)
[2022-05-29] MEDS ORDERED: HOLD METFORMIN - RECEIVED CONTRAST 20 ML VIAL IV SCH (10:00)
[2022-05-29 10:05] LABS: ALBUMIN 4.1 GM/DL (3.2-4.5)
[2022-05-29 10:06] LABS: CHLORIDE 109 MMOL/L (98-107); POTASSIUM 3.9 MMOL/L (3.6-5.0); SODIUM 142 MMOL/L (135-145)
[2022-05-29 10:07] LABS: CALCIUM 9.6 MG/DL (8.5-10.1)
[2022-05-29 10:08] LABS: GLUCOSE 100 MG/DL (70-105); TOTAL PROTEIN 6.4 GM/DL (6.4-8.2)
[2022-05-29 10:09] LABS: CARBON DIOXIDE 24 MMOL/L (21-32)
[2022-05-29 10:10] LABS: BILIRUBIN,TOTAL 1.7 MG/DL (0.1-1.0)
[2022-05-29 10:11] LABS: ALKALINE PHOSPHATASE 51 U/L (40-136)
[2022-05-29 10:12] LABS: CREATININE SERUM 0.71 MG/DL (0.60-1.30); GFR ESTIMATED 97
[2022-05-29 10:13] LABS: BUN/CREATININE RATIO 23
[2022-05-29 10:14] LABS: FIBRIN DEGRADATION PRODUCTS 1.87 UG/ML (0.00-0.49); INR 0.9 (0.8-1.4); PROTHROMBIN TIME PATIENT 12.9 SEC (12.2-14.7)
[2022-05-29 10:15] LABS: ALANINE AMINOTRANSFERASE 24 U/L (0-55)
[2022-05-29] MEDS ORDERED: TENECTEPLASE 50 MG VIAL IV ONE (10:28)
--- NOTE | 2022-05-29 10:37 | Diagnostic Imaging Report ---
Clinical indications: Patient unresponsive. Exams: 1: Head CT with and without IV contrast. Auto Exposure Controls were utilized during the CT exam to meet ALARA standards for radiation dose reduction. 2: CT angiogram of the head and neck performed with 100 cc of Omnipaque 350 IV contrast. Sagittal and coronal MIP reformations were created for better visualization of vascular anatomy. CT angiogram was post-processed using RAPID LVO detection to include quantitative measurements of cerebral blood flow and automated results notification to the stroke and/or neurointerventional team. Comparison: Head CT without contrast dated 05/29/2022. Findings: Head CT: Stable appearance of the head CT with no evidence of acute intracranial process. There is no abnormal IV contrast enhancement. There is normal weber-white matter distinction. There is skull streak artifact obscuring portions of the brainstem and posterior fossa. There appears to be a filling defect within the mid and distal basilar artery which correlated to hyperdense artery sign on comparison head CT. The remainder of this exam shows no significant interval change compared to the prior study of comparison. CT Angiogram: There is dense contrast seen within the right subclavian vein and superior vena cava cause streak artifact obscuring portions of the aortic arch and proximal great vessels. There is common origin of the brachiocephalic artery and left common carotid consistent with bovine arch. The brachiocephalic artery and bilateral subclavian arteries are patent. The bilateral common carotid arteries, bilateral cervical ICA, and bilateral ECA are patent. The bilateral petrous, cavernous, supraclinoid ICA are patent. The bilateral ACAs and distal branches are patent. The bilateral MCAs and distal branches are patent. The bilateral cervical vertebral arteries are patent. The intradural vertebral arteries are patent. The left PICA is patent. Right ICA PICA is noted. There is partially occlusive thrombus involving the mid basilar artery which extends to the basilar summit area which is near completely occlusive. There is small amount of thrombus extending into the left P1 [employer] region. The right [employer] and distal branches are patent. There is a smaller caliber left posterior communicating artery. In the left P2 [employer]IST [employer]CTOR and distal left [employer] branches are patent. The dural venous sinuses are patent. The neck soft tissue structures show no significant abnormality. Visualized upper lung torres are clear. There are degenerative spurs involving the cervical spine. IMPRESSION: 1: There is near completely occlusive intravascular thrombus seen from the mid basilar artery to the distal basilar artery/basilar summit region with extension into the left P1 [employer] SU[employer]IST IN[employer]CTOR. There is a patent small caliber left posterior communicating artery and patent left P2 [employer]IST [employer] and distal left [employer]CTOR branches. 2: There are no other areas of intravascular thrombus seen. There is no significant stenosis, vascular malformation, aneurysm, or dissection. 3: Stable CT scan of the brain with no brain parenchymal changes related to acute cerebral infarct or intracranial hemorrhage. 4: Bovine aortic arch. Critical finding. Results of this report was discussed with Dr. Sarah Kenny via the telephone on 05/29/2022 at 1026 hours. Dictated by: Dictated on workstation # [id number]
[2022-05-29] MEDS ORDERED: MIDAZOLAM 5 MG/5 ML (VERSED) VIAL IVP ONE (11:00)
[2022-05-29 11:08] LABS: BILIRUBIN,URINE NEGATIVE (NEGATIVE); CLARITY,URINE CLEAR; COLOR,URINE YELLOW; GLUCOSE, URINE (UA) NEGATIVE (NEGATIVE); KETONES,URINE 1+ (NEGATIVE); LEUKOCYTE ESTERASE ,URINE NEGATIVE (NEGATIVE); NITRITE,URINE NEGATIVE (NEGATIVE); PH,URINE 6.5 (5-9); PROTEIN,URINE NEGATIVE (NEGATIVE)
[2022-05-29 11:15] LABS: BACTERIA,URINE NEGATIVE /HPF; RBC,URINE RARE /HPF; SQUAMOUS EPITHELIAL CELL,UR RARE /HPF
--- NOTE | 2022-05-29 11:44 | Diagnostic Imaging Report ---
EXAMINATION: Chest 1 view HISTORY: Intubated. COMPARISON: Chest radiograph performed earlier the same date. FINDINGS: There has been interval placement of an endotracheal tube with the tip of the endotracheal tube overlying the trachea approximately 2 cm above the ashely. Enteric tube has been placed which appears looped in the GE junction. The lung volumes are normal. No focal consolidation is seen. No large pleural effusion or pneumothorax is seen. The cardiomediastinal silhouette is normal in size and contour. No acute osseous abnormality is seen. IMPRESSION: 1. Interval intubation with the tip of the endotracheal tube approximately 2 cm above the ashely. Consider pulling back 2 cm. 2. Enteric tube has been placed with the tip looped at the GE junction. Recommend advancing 3 to 4 cm. 3. The lungs remain clear. Dictated by: Dictated on workstation # [id number]
== END 2022-05-29 11:37 | disposition short-term general hospital (02) ==
LOC: EDUNIT# 09:17 → ER 09:18
DX: I63.9 Cerebral infarction, unspecified (principal)
CPT/HCPCS: 36415; 51702; 70450; 70496; 70498; 71045; 80053; 81000; 84484; 85025; 85379; 85610; 85730; 93005; 93041

== ENCOUNTER → 2023-02-15 | Outpatient (CLI) | payer BC ==
[~2023-02-15] MED LIST changes: +IOHEXOL 350 MG/ML 100 ML (OMNIPAQUE 350) VIAL IV ONE; +NS 100 ML (IVPB) BAG IV ONE
--- NOTE | 2023-02-15 14:58 | Diagnostic Imaging Report ---
PROCEDURE: CT angiography of the head and CT angiography of the neck with and without contrast. TECHNIQUE: Contiguous noncontrast images were obtained from the skull base through the vertex. After intravenous contrast administration, helical CT angiography of the neck was performed. Source data was reformatted into 3D MIP projections. Delayed post contrast acquisition was also obtained. Auto Exposure Controls were utilized during the CT exam to meet ALARA standards for radiation dose reduction. 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 Study is performed for follow-up. COMPARISON: Correlation is made with prior CT angiogram of the head and neck from 05/29/2022. FINDINGS: Precontrast head CT demonstrates ventricles and sulci to be within normal limits. No sulcal effacement or midline shift is identified. No acute intra-axial or extra-axial hemorrhage is detected. Cisterns are patent. Visualized paranasal sinuses are clear. Delayed postcontrast images are without evidence of abnormal enhancement. CT angiographic portion of the exam demonstrates a wide patency of the great vessels arising from the aortic arch. The right and left common carotid arteries are widely patent. The carotid bifurcations are unremarkable. There is moderate tortuosity of both the right and left internal carotid arteries, however bilateral internal carotid arteries are widely patent. Carotid siphons are unremarkable. The M1 and M2 branches of the middle cerebral arteries appear to be widely patent. Anterior cerebral arteries are widely patent. The vertebral arteries are codominant. The basilar artery is widely patent. Previously noted intravascular thrombus is no longer visualized. Thrombus noted within the left P1 segment of the posterior cerebral artery is no longer visualized. Bilateral posterior cerebral arteries are patent. No thromboemboli or large vessel occlusion is identified. IMPRESSION: Unremarkable CT angiogram of the head and neck. Previously noted basilar and left [employer] thrombus has resolved. No new abnormality is detected. Dictated by: Dictated on workstation # [id number]
== END ==
LOC: RAD 11:15
DX: Q21.12 Patent foramen ovale (principal); Z86.73 Personal history of transient ischemic attack (TIA), and cerebral infarction without residual deficits
CPT/HCPCS: 70496; 70498

== ENCOUNTER → 2023-04-12 | Outpatient (CLI) | payer BC ==
[~2023-04-12] MED LIST changes: -IOHEXOL 350 MG/ML 100 ML (OMNIPAQUE 350) VIAL IV ONE; -NS 100 ML (IVPB) BAG IV ONE
--- NOTE | 2023-04-12 11:34 | Diagnostic Imaging Report ---
INDICATION: Routine screening. Comparison is made with prior mammogram from 03/22/2022 and 03/24/2021. 2-D and 3-D bilateral screening mammography was performed with CAD. Both breasts are heterogeneously dense, limiting the sensitivity of mammography. The parenchymal pattern is stable. No mass or malignant-appearing microcalcifications are seen. Axillae are unremarkable. IMPRESSION: No mammographic features suspicious for malignancy are identified. ACR BI-RADS Category 1: Negative. Result letter will be mailed to the patient. Note: At least 10% of breast cancer is not imaged by mammography. BI-RADS Category 1 Dictated by: Dictated on workstation # [id number]
== END ==
LOC: RAD 10:41
PROVIDERS: ATTEND Nurse Practitioner Women's Health
DX: Z12.31 Encounter for screening mammogram for malignant neoplasm of breast (principal)
CPT/HCPCS: 77063; 77067